=== PATIENT | male | born 1980 | race American Indian/Alaskan Native ===

== ENCOUNTER 2016-08-08 10:29 | Emergency (ER) | payer SELFPAY ==
[2016-08-08 11:02] VITALS: BP 132/72
[2016-08-08] MEDS ORDERED: MOTRIN PO ONE (11:25)
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
== END 2016-08-08 12:52 | disposition home or self-care (01) ==
LOC: ED 10:29
DX: S96.912A Strain of unspecified muscle and tendon at ankle and foot level, left foot, initial encounter (principal); S05.11XA Contusion of eyeball and orbital tissues, right eye, initial encounter; Y08.89XA Assault by other specified means, initial encounter; Y93.89 Activity, other specified; Y92.89 Other specified places as the place of occurrence of the external cause; Y99.8 Other external cause status
CPT/HCPCS: 70486

== ENCOUNTER 2017-07-03 22:31 | Emergency (ER) | payer BC ==
[2017-07-04 01:22] LABS: Basophils % (Auto) 0.7 % (0.0-1.8); Eosinophils # (Auto) 0.1 K/mm3 (0.0-0.4); Eosinophils % (Auto) 2.8 % (0.0-4.3); Hematocrit 40.6 % (35.5-45.6); Hemoglobin 13.6 gm/dl (11.8-15.2); Lymphocytes # (Auto) 2.4 K/mm3 (1.2-5.4); Lymphocytes % (Auto) 48.7 % (13.4-35.0); Mean Corpuscular HGB Conc 34 % (32-34); Mean Corpuscular Hemoglobin 29 pg (28-32); Mean Corpuscular Volume 86 fl (84-94); Monocytes # (Auto) 0.4 K/mm3 (0.0-0.8); Monocytes % (Auto) 8.9 % (0.0-7.3); Platelet Count 146 K/mm3 (140-440); Red Blood Count 4.71 M/mm3 (3.65-5.03)
[2017-07-04 01:36] LABS: Alanine Aminotransferase 12 units/L (7-56); Albumin 4.6 g/dL (3.9-5); BUN/Creatinine Ratio 11; Blood Urea Nitrogen 13 mg/dL (9-20); Calcium 9.3 mg/dL (8.4-10.2); Hemolysis Index 5
[2017-07-04 03:56] LABS: Bilirubin,Urine NEG (Negative); Blood,Urine NEG (Negative); Color,Urine Straw (Yellow); Protein,Urine <15 mg/dL mg/dL (Negative); Urobilinogen,Urine < 2.0 mg/dL (<2.0)
[2017-07-04 04:01] LABS: WBC,Urine < 1.0 /HPF (0.0-6.0)
--- NOTE | 2017-07-04 05:44 | Cat Scan Report ---
FINAL REPORT PROCEDURE: CT ABDOMEN PELVIS W CON TECHNIQUE: Computerized axial tomography of the abdomen and pelvis was performed after the IV injection of iodinated nonionic contrast. HISTORY: abdominal and low back pain worsening after meals COMPARISON: No prior studies are available for comparison. FINDINGS: Visualized lower thorax: No significant abnormality. Liver: Normal size and attenuation. Spleen: Normal size and attenuation. Gallbladder and biliary system: Normal. Pancreas: Normal. Adrenals: Normal. Kidneys: Normal. GI tract: There is moderate stool in the colon. There is no obstruction, colitis or enteritis. The appendix is normal.. Lymph nodes and mesentery: Normal. Vasculature: Normal. Bladder: Normal. Reproductive organs: Normal. Peritoneum: There is no ascites or free air, abscess or adenopathy.. Musculoskeletal structures: No significant abnormality. Other: None. IMPRESSION: There is moderate stool in the colon. There is no obstruction, colitis or enteritis. The appendix is normal.. There is no ascites or free air, abscess or adenopathy..
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
[2017-07-04 09:52] VITALS: BP 115/67
--- NOTE | 2017-07-04 12:11 | Consultation ---
History of Present Illness Consult date: 07/04/17 Requesting physician: ILYA LARA Consult reason: bradycardia History of present illness: The pt is a 36-year-old male with no known significant past medical history. He is previously unknown to our practice. He presented to the emergency department with complaint of a two-week history of intermittent lower abdominal pain that radiates around towards his back that was exacerbated last night. It was the most painful last night that has ever been. He denies any nausea, vomiting, diarrhea, dysuria, fever, chills, chest pain, palpitations, diaphoresis, dizziness or syncope. Following arrival, he was noted to have sinus bradycardia with HR in 40s and thus cardiology has been consulted. BPs WNL. On evaluation, pt has no current complaints. He reports resolution of his abdominal pain. Abdomen/pelvis CT showed NAF. Past History Past Medical History: No medical history Social history: denies: smoking, alcohol abuse, prescription drug abuse Medications and Allergies Allergies Allergy/AdvReac Type Severity Reaction Status Date / Time No Known Allergies Allergy Unverified 08/08/16 10:48 Home Medications Medication Instructions Recorded Confirmed Last Taken Type Ibuprofen [Motrin 600 MG tab] 600 mg PO Q8H PRN 7 Days tablet 08/08/16 Unknown Rx HYDROcodone/APAP 5-325 [[place] 1 each PO Q8H PRN #8 tablet 07/04/17 Unknown Rx 5/325] Review of Systems Constitutional: no weight loss, no weight gain, no fever, no chills, no sweats Ears, nose, mouth and throat: no ear pain, no nose pain, no sinus pressure, no sinus pain Cardiovascular: no chest pain, no orthopnea, no palpitations, no rapid/ irregular heart beat, no edema, no syncope, no lightheadedness, no shortness of breath, no dyspnea on exertion Respiratory: no cough, no shortness of breath, no dyspnea on exertion, no congestion, no wheezing, no pain on inspiration Gastrointestinal: abdominal pain, no nausea, no vomiting, no diarrhea, no constipation, no change in bowel habits Genitourinary Male: no dysuria, no hematuria, no flank pain, no discharge, no urinary frequency, no urinary hesitancy Musculoskeletal: no neck stiffness, no neck pain Integumentary: no rash, no pruritis, no redness, no sores, no wounds Neurological: no head injury, no seizures, no syncope Psychiatric: no anxiety Endocrine: no cold intolerance, no heat intolerance Hematologic/Lymphatic: no easy bruising, no easy bleeding, no lymphadenopathy Allergic/Immunologic: no urticaria, no wheezing, no persistent infections Physical Examination Vital Signs Temp Pulse Resp BP Pulse Ox 98.5 F 49 L 18 136/84 100 07/04/17 00:53 07/04/17 00:53 07/04/17 00:53 07/04/17 00:53 07/04/17 00:53 General appearance: no acute distress HEENT: Positive: PERRL, Normocephaly, Mucus Membranes Moist Neck: Positive: neck supple, trachea midline Cardiac: Positive: Reg Rate and Rhythm, S1/S2 Lungs: Positive: clear to auscultation Neuro: Positive: Grossly Intact, Cranial Nerve 2-12 Intact Abdomen: Positive: Soft. Negative: Tender Skin: Positive: Clear. Negative: Rash Musculoskeletal: No Fluid Collection, No Pain, Normal Range of Motion Extremities: Absent: edema Results 07/04/17 01:05 07/04/17 01:05 Cardiac Enzymes 07/04/17 Range/Units 01:05 AST 12 (5-40) units/L CBC 07/04/17 Range/Units 01:05 WBC 4.8 (4.5-11.0) K/mm3 RBC 4.71 (3.65-5.03) M/mm3 Hgb 13.6 (11.8-15.2) gm/dl Hct 40.6 (35.5-45.6) % Plt Count 146 (140-440) K/mm3 Lymph # 2.4 (1.2-5.4) K/mm3 [place] # 0.4 (0.0-0.8) K/mm3 Eos # 0.1 (0.0-0.4) K/mm3 Baso # 0.0 (0.0-0.1) K/mm3 Comprehensive Metabolic Panel 07/04/17 Range/Units 01:05 Sodium 140 (137-145) mmol/L Potassium 4.4 (3.6-5.0) mmol/L Chloride 99.3 (98-107) mmol/L Carbon Dioxide 30 (22-30) mmol/L BUN 13 (9-20) mg/dL Creatinine 1.2 (0.8-1.5) mg/dL Glucose 93 (75-100) mg/dL Calcium 9.3 (8.4-10.2) mg/dL AST 12 (5-40) units/L ALT 12 (7-56) units/L Alkaline Phosphatase 49 (35-129) units/L Total Protein 7.0 (6.3-8.2) g/dL Albumin 4.6 (3.9-5) g/dL - Imaging and Cardiology EKG: report reviewed, image reviewed EKG interpretations - Telemetry EKG Rhythm: Sinus Bradycardia - EKG Sinus rhythms and dysrhythmias: sinus bradycardia Assessment and Plan Assessment: Abdominal pain - abdomen/pelvis CT with NAF; labwork unremarkable Asymptomatic sinus bradycardia - ECG with no acute ischemic changes; suspect due to good physical conditioning Plan: Currently stable cardiac status. Pt may discharge home from cardiology standpoint. If additional cardiac evaluation is desired, pt may make an appointment in our office with Dr. Porras ([phone]). The patient has been seen in conjunction with Dr. Porras who agrees with the assessment and plan of care.
== END 2017-07-04 10:05 | disposition home or self-care (01) ==
LOC: ED 22:31
DX: I44.0 Atrioventricular block, first degree (principal); R00.1 Bradycardia, unspecified; R10.30 Lower abdominal pain, unspecified
CPT/HCPCS: 36415; 74177; 80053; 81001; 83690; 85025; 93005; 93010; 99284; Q9967

== ENCOUNTER 2018-06-14 21:00 | Emergency (ER) | payer BC ==
[2018-06-14 21:10] VITALS: BP 133/69
[2018-06-14] MEDS ORDERED: NACL 0.9% 1000 ML 1,000 ML IV ONE (21:34)
[2018-06-14] MEDS ORDERED: ZOFRAN IM ONE (21:37)
[2018-06-14 22:40] LABS: Basophils % (Auto) 0.2 % (0.0-1.8); Hematocrit 39.2 % (35.5-45.6); Hemoglobin 13.4 gm/dl (11.8-15.2); Lymphocytes % (Auto) 9.6 % (13.4-35.0); Mean Corpuscular HGB Conc 34 % (32-34); Mean Corpuscular Volume 86 fl (84-94); Monocytes # (Auto) 0.5 K/mm3 (0.0-0.8); Monocytes % (Auto) 4.7 % (0.0-7.3); Platelet Count 149 K/mm3 (140-440); Red Blood Count 4.54 M/mm3 (3.65-5.03); Red Cell Distribution Width 13.4 % (13.2-15.2)
[2018-06-14 22:41] LABS: Bilirubin,Urine NEG (Negative); Blood,Urine NEG (Negative); Color,Urine Yellow (Yellow); Mucus,Urine 2+ /HPF; Urobilinogen,Urine < 2.0 mg/dL (<2.0)
[2018-06-14 22:53] LABS: Alanine Aminotransferase 13 units/L (7-56); Albumin 4.5 g/dL (3.9-5); BUN/Creatinine Ratio 12; Blood Urea Nitrogen 12 mg/dL (9-20); Calcium 9.2 mg/dL (8.4-10.2); Hemolysis Index 7
[2018-06-14] MEDS ORDERED: TORADOL IV ONE (23:06)
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
--- NOTE | 2018-06-14 23:52 | XRay Report ---
PROCEDURE: XR ABDOMEN 1V AP TECHNIQUE: Abdominal series, including supine and upright AP views. HISTORY: abd pain COMPARISONS: None . FINDINGS: Bowel gas pattern: Nonobstructive . Masses or calcifications: None . Bony structures: No significant abnormality . Pneumoperitoneum: None . Other: No significant findings . IMPRESSION: No acute abnormality. This document is electronically signed by Magdaleno Dior MD., June 14 2018 11:50:28 PM ET
== END 2018-06-15 01:03 | disposition home or self-care (01) ==
LOC: ED 21:00
DX: R10.32 Left lower quadrant pain (principal); R11.2 Nausea with vomiting, unspecified; R19.7 Diarrhea, unspecified
CPT/HCPCS: 36415; 74018; 80053; 81001; 83690; 85025; 96361; 96372; 96374; 99284; J1885; J2405; J7030